=== PATIENT | male | born 1955 | race Hispanic/Latino ===

== ENCOUNTER 2018-01-19 20:29 | Emergency (ER) | payer OTHER ==
[~2018-01-19] VITALS: Ht 175.3 cm; Wt 93.0 kg
[~2018-01-19 20:29] MED LIST changes: -ACETAMINOPHEN/CODEINE 300MG - 30MG TAB ONE; -CEFAZOLIN SOD 1 GM VIAL ONE; -DEXAMETHASONE SOD PHOS INJ 4 MG/ML VIAL ONE; -FENTANYL CITRATE/PF 100MCG/2 ML INJ ONE; -IOPAMIDOL 610MG/1ML 300 MG/ML VIAL IV ONE; -LEVOFLOXACIN 250MG/D5W 50ML 50 ML ONE; -LEVOFLOXACIN 500MG/D5W 100ML 100 ML IV ONE; -LIDOCAINE HCL 2% LOCAL INJ 5 ML SDV VIAL INJ ONE; -MIDAZOLAM HCL 2 MG/2 ML VIAL ONE; -ONDANSETRON HCL INJ 2 MG/ML VIAL ONE; -PROPOFOL IV EMULSION 10 MG/ML 20 ML VIAL ONE; -SEVOFLURANE INHAL SOLN 250 ML PEN BTL ONE
[2018-01-19] MEDS ORDERED: LIDOCAINE JELLY 2% 10ML URO-JET ONE (20:57)
[2018-01-19] MEDS ORDERED: LIDOCAINE JELLY 2% 10ML URO-JET TOP ONE (21:00)
[2018-01-19 21:25] LABS: CLARITY,URINE CLOUDY (CLEAR); COLOR,URINE BROWN (YELLOW)
[2018-01-19 21:26] LABS: KETONES,URINE TRACE (NEGATIVE); LEUKOCYTE ESTERASE ,URINE TRACE (NEGATIVE); NITRITE,URINE POSITIVE (NEGATIVE); PROTEIN,URINE DIPSTICK 3+ (NEGATIVE); URINE UROBILINOGEN 1 mg/dL (0.2 - 1)
[2018-01-19 21:27] LABS: BILIRUBIN,URINE 2+ (NEGATIVE)
[2018-01-19 21:36] LABS: BACTERIA,URINE MODERATE /HPF; EPITHELIAL CELLS,URINE RARE /LPF; RBC,URINE >50 /HPF (0-5)
[2018-01-19] MEDS ORDERED: LIDOCAINE HCL 1% LOCAL INJ 20 ML VIAL ONE (21:53)
[2018-01-19 22:00] VITALS: BP 130/86
[2018-01-19] MEDS ORDERED: CEFTRIAXONE SOD 1 GM VIAL IM ONE (22:00)
== END 2018-01-19 22:23 | disposition home or self-care (01) ==
LOC: ER 20:29
DX: R33.9 Retention of urine, unspecified (principal); N40.1 Benign prostatic hyperplasia with lower urinary tract symptoms; N30.91 Cystitis, unspecified with hematuria
CPT/HCPCS: 51702; 81001; 87086; 99282; J0696; J2001; 51700

== ENCOUNTER → 2018-01-19 | Day surgery (SDC) | payer OTHER ==
[~2018-01-19] MED LIST: ACETAMINOPHEN/CODEINE 300MG - 30MG TAB ONE; CEFAZOLIN SOD 1 GM VIAL ONE; DEXAMETHASONE SOD PHOS INJ 4 MG/ML VIAL ONE; FENTANYL CITRATE/PF 100MCG/2 ML INJ ONE; FINASTERIDE5 MG PO; FLOMAX0.4 MG PO; HYDROCHLOROTHIA25 MG PO; IOPAMIDOL 610MG/1ML 300 MG/ML VIAL IV ONE; LEVAQUIN500 MG PO; LEVOFLOXACIN 250MG/D5W 50ML 50 ML ONE; LEVOFLOXACIN 500MG/D5W 100ML 100 ML IV ONE; LIDOCAINE HCL 2% LOCAL INJ 5 ML SDV VIAL INJ ONE; MIDAZOLAM HCL 2 MG/2 ML VIAL ONE; NITROFURANTOIN100 MG PO; ONDANSETRON HCL INJ 2 MG/ML VIAL ONE; PROPOFOL IV EMULSION 10 MG/ML 20 ML VIAL ONE; SEVOFLURANE INHAL SOLN 250 ML PEN BTL ONE
[2018-01-19 11:10] VITALS: BP 142/79
--- NOTE | 2018-01-19 18:42 | Operative Report ---
DATE OF PROCEDURE: January 19, 2018 PREOPERATIVE DIAGNOSES 1. Elevated prostate specific antigen. 2. Benign prostatic hypertrophy with obstruction. 3. Microhematuria. POSTOPERATIVE DIAGNOSES 1. Elevated prostate specific antigen. 2. Benign prostatic hypertrophy with obstruction. 3. Microhematuria. 4. Bladder stones. OPERATION PERFORMED: 1. Cystoscopy and bilateral retrograde pyelograms under fluoroscopic control. This was done in no connection to the elevated PSA for evaluation of the microhematuria. 2. Interpretation of x-ray, radiologist not present. 3. Supervision of fluoroscopy, radiologist not present. 4. Removal of multiple small bladder calculi. 5. Ultrasound of the prostate. 6. Ultrasound-guided needle biopsy of the prostate. Six cores from each side of the prostate. HAIR BLENDER: None. ANESTHESIA: General. CLINICAL INDICATION NOTE: This is a year-old patient who was brought for evaluation of microhematuria as well as elevated PSA. He does have a history of BPH with obstruction and elevated PSA is the reason for the planned biopsy of the prostate. Procedure was discussed with the patient, potential benefits and complications discussed, explained and accepted. DESCRIPTION OF PROCEDURE AND FINDINGS: After proper level of anesthesia was achieved, the patient was placed in the lithotomy position, prepped and draped in a sterile fashion. Diluted Betadine solution was placed in the rectum to assist in local sterilization of the rectum. A cystourethroscopy was done. The bladder outlet is significantly obstructed by enlarged prostate. Bladder is trabeculated. No tumor identified; however, there are multiple, small, yellowish calcifications, tiny in size, however many of them were identified and irrigated with Marie syringe removed from the bladder. Following this, a cone-tip catheter was used and bilateral retrograde pyelograms were done under fluoroscopic control. No intrinsic lesions were identified bilaterally and the drainage was prompt. Following this the bladder was filled up for irrigation and the endoscope was removed. Rectal ultrasound probe was inserted. The prostate was measured and it seems to have a size of 550 grams prostate. No definitive hypoechoic area could be identified. Following this, transrectal biopsies of the prostate were done. Six cores were obtained from each side of the prostate, 2 at the base, 2 in the middle, and 2 at the apex. They were sent separately to pathology. Following this, the patient was transferred in satisfactory condition to recovery. Postop antibiotics and pain medicine were given as well as followup in several weeks. Job#: [id number]
--- NOTE | 2018-01-22 09:07 | Diagnostic Imaging Report ---
US guidance for prostate biopsy CPT CODE: 08828 HISTORY: As above TECHNIQUE: Ultrasound guidance was provided to Dr. Sandoval for the purposes of a prostate biopsy. COMPARISON: None. FINDINGS: Prostate gland measures 4.4 x 5.1 x 4.0 cm (volume is 44.4 cc). The transition zone is prominent. No masses in the visualized portions. IMPRESSION: As above. Signed by: Dr. Lennie Hu MD on 01/22/2018 9:04 AM
== END | disposition home or self-care (01) ==
LOC: OR 06:57
PROVIDERS: ATTEND Urology
DX: R97.20 Elevated prostate specific antigen [PSA] (principal); N41.1 Chronic prostatitis; N40.1 Benign prostatic hyperplasia with lower urinary tract symptoms; N13.8 Other obstructive and reflux uropathy; N21.0 Calculus in bladder; N32.89 Other specified disorders of bladder; I10 Essential (primary) hypertension; R00.1 Bradycardia, unspecified; Z01.810 Encounter for preprocedural cardiovascular examination
CPT/HCPCS: 52005; 55700; 74420; 76872; 76998; 88305; 93005; C1758; J0690; J1100; J1956 ×2; J2001; J2250; J2405; J2704; Q9967; 76942

== ENCOUNTER 2018-01-20 16:36 | Emergency (ER) | payer OTHER ==
[~2018-01-20] VITALS: Ht 175.3 cm; Wt 93.0 kg
[2018-01-20 18:28] LABS: ANION GAP 17.2 mmol/L (8-16); BLOOD UREA NITROGEN 30 mg/dL (7-26); BUN/CREATININE RATIO 26 (6-25); CALCIUM 9.3 mg/dL (8.4-10.2); CARBON DIOXIDE 20 mmol/L (22-29); CHLORIDE 105 mmol/L (98-107); CREATININE, SERUM 1.14 mg/dL (0.72-1.25); EST GLOMERULAR FILTRATION RATE > 60 ML/MIN (60-); GLUCOSE 123 mg/dL (74-118); POTASSIUM 3.2 mmol/L (3.5-5.1); SODIUM 139 mmol/L (136-145)
[2018-01-20 19:04] LABS: BILIRUBIN,URINE NEGATIVE (NEGATIVE); CLARITY,URINE HAZY (CLEAR); COLOR,URINE YELLOW (YELLOW); KETONES,URINE NEGATIVE (NEGATIVE); LEUKOCYTE ESTERASE ,URINE TRACE (NEGATIVE); NITRITE,URINE NEGATIVE (NEGATIVE); PROTEIN,URINE DIPSTICK 2+ (NEGATIVE); URINE UROBILINOGEN 0.2 mg/dL (0.2 - 1)
[2018-01-20 19:15] LABS: BACTERIA,URINE FEW /HPF; EPITHELIAL CELLS,URINE FEW /LPF; RBC,URINE >50 /HPF (0-5); WBC,URINE (MAN) 0-5 /HPF (0-5)
[2018-01-20 19:16] LABS: AMORPHOUS SEDIMENT,URINE MANY (FEW)
== END 2018-01-20 19:27 | disposition home or self-care (01) ==
LOC: ER 16:36
DX: R33.9 Retention of urine, unspecified (principal); E86.0 Dehydration
CPT/HCPCS: 36415; 80048; 81001; 87086; 99284